=== PATIENT | male | born 1985 | race Caucasian/White ===

== ENCOUNTER 2022-03-18 19:30 | Emergency (ER) | payer OTHER ==
[2022-03-18 19:37] VITALS: BP 116/86
--- NOTE | 2022-03-18 19:51 | ED Physician Documentation ---
PD HPI UPPER EXT INJURY - Stated complaint Stated Complaint: FINGER INJ - Chief complaint Chief Complaint: Trauma Ext - History obtained from History obtained from: Patient (Right-handed gentleman who is up-to-date on tetanus cut the left second through fourth fingers on a table saw at home just prior to arrival.) Review of Systems Constitutional: reports: Reviewed and negative Eyes: reports: Reviewed and negative Ears: reports: Reviewed and negative Nose: reports: Reviewed and negative Throat: reports: Reviewed and negative Cardiac: reports: Reviewed and negative PD PAST MEDICAL HISTORY - Allergies Allergies/Adverse Reactions: Allergies Allergy/AdvReac Type Severity Reaction Status Date / Time grass pollen Allergy Rash Verified 03/18/22 19:38 PD ED PE NORMAL - Vitals Vital signs reviewed: Yes - General General: Alert and oriented X 3, No acute distress - Extremities Extremities: Other (He is basically shallow but numerous scratches on the palmar surface of the fourth and fifth fingers. He has more of the similar scratches on the second and third fingers but the second and third finger each have a single laceration needing repair as well. There is no neurovascular compromise in a) - Neuro Neuro: Alert and oriented X 3, Normal speech Results - Vitals Vitals: Vital Signs - 24 hr 03/18/22 03/18/22 03/18/22 19:34 19:45 20:58 Temperature 36.6 C Heart Rate 68 Respiratory 14 16 16 Rate Blood Pressure 116/86 H O2 Saturation 99 Oxygen O2 Source Room air Procedures - Laceration (location) R2nd/3rd fingers Length in cm: 3 Wound type: Linear (About 1 and half centimeter wounds each near the palmar PIP of the second and third fingers) Neurovascular status: Sensory intact, Motor intact Tendon involvement: Tendon intact Anesthesia: Lidocaine 1% Wound preparation: Irrigated copiously NS Skin layer closure: Nylon, Interrupted, Size #-0 - enter number (4-0), Sutures - enter # (3 in the middle finger, 4 in the index finger) Other: Patient tolerated well, No complications, Neurovascular intact, Tetanus UTD PD MEDICAL DECISION MAKING - ED course ED course: Multiple scratches on the second through fifth fingers but 1 laceration on each of the second and third fingers that did merit suturing. Nurse dressed the rest. Departure - Departure Disposition: 01 Home, Self Care Clinical Impression: Laceration of multiple sites of hand and fingers Condition: Good Record reviewed to determine appropriate education?: Yes Instructions: ED Laceration Hand Comments: Come back for any signs of infection which would include: Redness, swelling, drainage, increased pain, or fevers. You can wash it soap and water. Keep it covered and moist with bacitracin ointment which is available over the counter; avoid neosporin. Follow-up with your physician in 14 days for suture removal. Discharge Date/Time: 03/18/22 21:01
[2022-03-18] MEDS: LIDOCAINE-MPF 2% 5 ML VIAL SUBQ STA (19:57)
== END 2022-03-18 21:01 | disposition home or self-care (01) ==
LOC: ED 19:30
DX: S61.211A Laceration without foreign body of left index finger without damage to nail, initial encounter (principal); S61.213A Laceration without foreign body of left middle finger without damage to nail, initial encounter; W27.0XXA Contact with workbench tool, initial encounter
CPT/HCPCS: 12002; 99282